=== PATIENT | male | born 1945 | race African-American/Black ===

== ENCOUNTER 2017-07-08 22:04 | Emergency (ER) | payer MEDICARE ==
[2017-07-08] MEDS ORDERED: Lidocaine 1% PF 5 ML VIAL ONE (23:10)
[2017-07-08] MEDS ORDERED: Acetaminophen 500 MG TAB ONE ×2 (23:40→23:41)
== END 2017-07-08 23:49 | disposition home or self-care (01) ==
LOC: ERS 22:04
DX: L72.3 Sebaceous cyst (principal); E11.9 Type 2 diabetes mellitus without complications; Z87.891 Personal history of nicotine dependence; Z79.84 Long term (current) use of oral hypoglycemic drugs
CPT/HCPCS: 10060; 99406; J2001